=== PATIENT | male | born 2000 | race Caucasian/White ===

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

== ENCOUNTER 2020-07-24 06:50 | Emergency (ER) | payer BC ==
[2020-07-24] MEDS ORDERED: Sodium Chloride 0.9% 1,000 ML IV ONE (07:22)
[2020-07-24] MEDS ORDERED: Ketorolac 15 MG/ML SDV IVPUSH ONE (07:22)
--- NOTE | 2020-07-24 07:26 | EDM.PDOC ---
ED HPI GENERAL MEDICAL PROBLEM - General Chief Complaint: Gastrointestinal Problem Stated Complaint: LEFT SIDE PAIN Time Seen by Provider: 07/24/20 06:59 Source of Information: Reports: Patient History Limitations: Reports: No Limitations - History of Present Illness INITIAL COMMENTS - FREE TEXT/NARRATIVE: Pt is a 19-year-old male who presents today for left-sided abdominal pain. Patient states that he was asleep when the pain woke him up. The pain was kind of a squeezing and radiating down to his left lower quadrant. Patient denies any nausea or vomiting with decreased p.o. intake. Patient denies any urinary symptoms such as burning or frequency. Patient denies any diarrhea. Patient denies any other medical complaints. Patient denies any surgeries on his abdomen and has never had this pain before in the past. left lower abdomen Pain Score (Numeric/FACES): 8 - Related Data Allergies Allergy/AdvReac Type Severity Reaction Status Date / Time bee venom protein (honey bee) Allergy Hives Verified 07/24/20 06:55 Home Meds: Home Meds . [No Known Home Meds] 07/24/20 [History] Past Medical History - Past Health History Medical/Surgical History: Denies Medical/Surgical History HEENT History: Reports: None Cardiovascular History: Reports: None Respiratory History: Reports: None Gastrointestinal History: Reports: None Genitourinary History: Reports: None Musculoskeletal History: Reports: None Neurological History: Reports: Concussion Other Neuro History: 2006 Psychiatric History: Reports: None Endocrine/Metabolic History: Reports: None Hematologic History: Reports: None Immunologic History: Reports: None Oncologic (Cancer) History: Reports: None Dermatologic History: Reports: None - Infectious Disease History Infectious Disease History: Reports: Chicken Pox, Shingles - Past Surgical History Head Surgeries/Procedures: Reports: None GI Surgical History: Reports: None Social & Family History - Family History Family Medical History: No Pertinent Family History - Tobacco Use Tobacco Use Status *Q: Never Tobacco User - Caffeine Use Caffeine Use: Reports: None - Recreational Drug Use Recreational Drug Use: No ED ROS GENERAL - Review of Systems Review Of Systems: See Below Constitutional: Reports: No Symptoms HEENT: Reports: No Symptoms Respiratory: Reports: No Symptoms Cardiovascular: Reports: No Symptoms Endocrine: Reports: No Symptoms GI/Abdominal: Reports: Abdominal Pain : Reports: No Symptoms Musculoskeletal: Reports: No Symptoms Skin: Reports: No Symptoms Neurological: Reports: No Symptoms Psychiatric: Reports: No Symptoms Hematologic/Lymphatic: Reports: No Symptoms Immunologic: Reports: No Symptoms ED EXAM, GENERAL - Physical Exam Exam: See Below Exam Limited By: No Limitations General Appearance: Alert, WD/WN Respiratory/Chest: No Respiratory Distress, Lungs Clear Cardiovascular: Regular Rate, Rhythm GI/Abdominal: Normal Bowel Sounds, Soft, Non-Tender, No Mass Extremities: Normal Range of Motion Neurological: Alert, Oriented, CN II-XII Intact Course - Vital Signs Last Recorded V/S: Last Vital Signs Temp 96.6 F L 07/24/20 06:56 Pulse 92 07/24/20 06:56 Resp 22 H 07/24/20 06:56 BP 131/86 07/24/20 06:56 Pulse Ox 100 07/24/20 06:56 - Orders/Labs/Meds Labs: Laboratory Tests 07/24/20 07/24/20 07/24/20 Range/Units 07:05 07:05 08:25 WBC 5.82 (4.0-11.0) K/uL RBC 5.28 (4.50-5.90) M/uL Hgb 15.2 (13.0-17.0) g/dL Hct 44.3 (38.0-50.0) % MCV 83.9 (80.0-98.0) fL MCH 28.8 (27.0-32.0) pg MCHC 34.3 (31.0-37.0) g/dL RDW Std Deviation 38.7 (28.0-62.0) fl RDW Coeff of Rodolfo 13 (11.0-15.0) % Plt Count 325 (150-400) K/uL MPV 10.00 (7.40-12.00) fL Neut % (Auto) 55.2 (48.0-80.0) % Lymph % (Auto) 32.3 (16.0-40.0) % [place] % (Auto) 10.8 (0.0-15.0) % Eos % (Auto) 1.5 (0.0-7.0) % Baso % (Auto) 0.2 (0.0-1.5) % Neut # (Auto) 3.2 (1.4-5.7) K/uL Lymph # (Auto) 1.9 (0.6-2.4) K/uL [place] # (Auto) 0.6 (0.0-0.8) K/uL Eos # (Auto) 0.1 (0.0-0.7) K/uL Baso # (Auto) 0.0 (0.0-0.1) K/uL Nucleated RBC % 0.0 /100WBC Nucleated RBCs # 0 K/uL Sodium 143 (136-148) mmol/L Potassium 3.8 (3.5-5.1) mmol/L Chloride 105 (98-107) mmol/L Carbon Dioxide 23.8 (21.0-32.0) mmol/L BUN 16 (7.0-18.0) mg/dL Creatinine 1.3 (0.8-1.3) mg/dL Est Cr Clr Drug Dosing 76.23 mL/min Estimated GFR (MDRD) > 60.0 ml/min Glucose 118 H (74-106) mg/dL Calcium 9.5 (8.5-10.1) mg/dL Total Bilirubin 0.6 (0.2-1.0) mg/dL AST 17 (15-37) IU/L ALT 31 (14-63) IU/L Alkaline Phosphatase 90 (46-116) U/L Total Protein 7.4 (6.4-8.2) g/dL Albumin 4.2 (3.4-5.0) g/dL Globulin 3.2 (2.6-4.0) g/dL Albumin/Globulin Ratio 1.3 (0.9-1.6) Urine Color YELLOW Urine Appearance SLT CLOUDY Urine pH 7.0 (5.0-8.0) Ur Specific [place] 1.020 (1.001-1.035) Urine Protein TRACE H (NEGATIVE) mg/dL Urine Glucose (UA) NEGATIVE (NEGATIVE) mg/dL Urine Ketones NEGATIVE (NEGATIVE) mg/dL Urine Occult Blood LARGE H (NEGATIVE) Urine Nitrite NEGATIVE (NEGATIVE) Urine Bilirubin NEGATIVE (NEGATIVE) Urine Urobilinogen 0.2 (<2.0) EU/dL Ur Leukocyte Esterase NEGATIVE (NEGATIVE) Urine RBC 50-60 (0-2/HPF) Urine WBC 1-3 (0-5/HPF) Ur Epithelial Cells RARE (NONE-FEW) Urine Bacteria FEW (NEGATIVE) Urine Mucus LIGHT (NONE-MOD) Meds: Medications Discontinued Medications Generic Name Dose Route Start Last Admin Trade Name Jerardo PRN Reason Stop Dose Admin Sodium Chloride 1,000 mls @ 999 mls/hr 07/24/20 07:22 07/24/20 07:32 Normal Saline IV 07/24/20 08:22 999 mls/hr .BOLUS ONE Administration Ketorolac Tromethamine 15 mg 07/24/20 07:22 07/24/20 07:32 Toradol IVPUSH 07/24/20 07:23 15 mg ONETIME ONE Administration - Re-Assessments/Exams Free Text/Narrative Re-Assessment/Exam: 07/24/20 08:55 Patient pain has improved. Patient has some large occult blood. Patient likely had a stone that is passed. Patient has no signs of obstruction or hydronephrosis. Patient will be discharged and can follow-up with urology as outpatient. Departure - Departure Time of Disposition: 08:56 Disposition: Home, Self-Care 01 Condition: Good Clinical Impression: Kidney stone on left side - Discharge Information *PRESCRIPTION DRUG MONITORING PROGRAM REVIEWED*: Not Applicable *COPY OF PRESCRIPTION DRUG MONITORING REPORT IN PATIENT MARCE: Not Applicable Instructions: Kidney Stones, [id number] Referrals: Di Lopez ST[facility] DIPPER [Primary Care Provider] - Forms: ED Department Discharge Additional Instructions: The following information is given to patients seen in the emergency department who are being discharged to home. This information is to outline your options for follow-up care. We provide all patients seen in our emergency department with a follow-up referral. The need for follow-up, as well as the timing and circumstances, are variable depending upon the specifics of your emergency department visit. If you don't have a primary care physician on staff, we will provide you with a referral. We always advise you to contact your personal physician following an emergency department visit to inform them of the circumstance of the visit and for follow-up with them and/or the need for any referrals to a consulting specialist. The emergency department will also refer you to a specialist when appropriate. This referral assures that you have the opportunity for follow-up care with a specialist. All of these measure are taken in an effort to provide you with optimal care, which includes your follow-up. Under all circumstances we always encourage you to contact your private physician who remains a resource for coordinating your care. When calling for follow-up care, please make the office aware that this follow-up is from your recent emergency room visit. If for any reason you are refused follow-up, please contact the [facility] Emergency Department at and asked to speak to the emergency department charge nurse. Please follow up with your primary care physician. If you do not have a primary care physician, see below: [facility] - Urology [address] [place] [id number] Please follow-up with the urology clinic with the number we provided above. If you have any increased pain try taking Motrin. If you have any difficulty urinating or blood in her urine or nausea vomiting please return to the ED. Sepsis Event Note (ED) - Evaluation Sepsis Screening Result: No Definite Risk - Focused Exam Vital Signs: Vital Signs Temp Pulse Resp BP Pulse Ox 07/24/20 06:56 96.6 F L 92 22 H 131/86 100 - Assessment/Plan Assessment:: Pt Is a 19-year-old male who presents today for left-sided flank pain rating to his left lower quadrant. Could possibly be a kidney stone the patient has no GI symptoms such as nausea vomiting or diarrhea no symptoms such as dysuria or difficulty urinating. Will obtain labs and UA and provide pain control and reassess
[2020-07-24 07:45] LABS: BLOOD UREA NITROGEN,BUN 16 mg/dL (7.0-18.0); CARBON DIOXIDE,CO2 23.8 mmol/L (21.0-32.0); CHLORIDE,CL 105 mmol/L (98-107); GLUCOSE RANDOM 118 mg/dL (74-106); POTASSIUM,K 3.8 mmol/L (3.5-5.1); SODIUM,NA 143 mmol/L (136-148)
[2020-07-24 09:03] VITALS: BP 123/83; PULSE 93
== END 2020-07-24 09:20 | disposition home or self-care (01) ==
LOC: MW.ED 06:50
DX: N20.0 Calculus of kidney (principal); Z91.030 Bee allergy status
CPT/HCPCS: 36415; 80053; 81001; 85025; 96374; 99284; J1885; J7030; 99283

== ENCOUNTER 2021-12-17 21:54 | Emergency (ER) | payer BC ==
[2021-12-17] MEDS ORDERED: Sodium Chloride 0.9% 2.5 ML Syringe FLUSH PRN (22:39)
[2021-12-17] MEDS ORDERED: Ketorolac 30 MG/ML SDV IVPUSH ONE (22:39)
[2021-12-17] MEDS ORDERED: fentaNYL 50 MCG/ML SDV IVPUSH ONE (22:39)
[2021-12-17] MEDS ORDERED: Ondansetron 4 MG/2 ML SDV IVPUSH ONE (22:39)
[2021-12-17] MEDS ORDERED: Sodium Chloride 0.9% 1,000 ML IV ONE (22:39)
[2021-12-17] MEDS ORDERED: Sodium Chloride 0.9% 10 ML Syringe FLUSH PRN (22:39)
[2021-12-17 23:17] LABS: BLOOD UREA NITROGEN,BUN 21 mg/dL (7.0-18.0); CARBON DIOXIDE,CO2 22.2 mmol/L (21.0-32.0); CHLORIDE,CL 104 mmol/L (98-107); GLUCOSE RANDOM 128 mg/dL (74-106); LIPASE 74 U/L (73-393); POTASSIUM,K 3.9 mmol/L (3.5-5.1); SODIUM,NA 139 mmol/L (136-148)
[2021-12-17 23:50] VITALS: BP 127/80; PULSE 58
== END 2021-12-17 23:53 | disposition home or self-care (01) ==
LOC: MW.ED 21:54
DX: R10.83 Colic (principal); Z79.899 Other long term (current) drug therapy; Z91.030 Bee allergy status
CPT/HCPCS: 36415; 74176; 80053; 83690; 85025; 96374; 96375; 99284; J1885; J2405; J3010; J3490; J7030